=== PATIENT | female | born 1980 | race American Indian/Alaskan Native ===

== ENCOUNTER 2017-06-27 17:46 | Emergency (ER) | payer BC, OTHER ==
--- NOTE | 2017-06-27 18:35 | ED PDOC ---
Arrival/HPI - General Chief Complaint: Palpitations Time Seen by Provider: 06/27/17 17:51 Historian: Patient - History of Present Illness Narrative History of Present Illness (Text): 06/27/17 18:24 37yo morbidly obese female with PMHx of sleep apnea,anxiety, who present with complaint of arrhythmia since yesterday. States she have intermittent feeling of flutter and palpitation since yesterday. She report history of these symptoms for years now. States she saw a Radiologic Technology Instructor for the symptoms and had holter monitor test several times and other test that was all normal. she is on anxiolytic once daily. she denies chest pain, SOD, diaphoresis, calf pain, nausea, vomiting, dizziness, any other complaint. Past Medical History - Provider Review Nursing Documentation Reviewed: Yes - Infectious Disease Hx of Infectious Diseases: None - Cardiac Other/Comment: Unknown cardiac problem. - Gastrointestinal Hx Gastroesophageal Reflux: Yes - Psychiatric Hx Anxiety: Yes Hx Substance Use: No - Surgical History Other/Comment: Lapband adjustment today 06/27/17 Family/Social History - Physician Review Nursing Documentation Reviewed: Yes Family/Social History: Unknown Family HX Smoking Status: Never Smoked Hx Alcohol Use: No Hx Substance Use: No Allergies/Home Meds Allergies/Adverse Reactions: Allergies No Known Allergies Allergy (Verified 06/27/17 17:56) Home Medications: Home Meds Medication Instructions Recorded Confirmed Escitalopram [Lexapro] 10 mg PO DAILY 06/27/17 06/27/17 Omeprazole 40 mg PO DAILY 06/27/17 06/27/17 Review of Systems - Physician Review All systems were reviewed & negative as marked: Yes - Review of Systems Constitutional: Normal Eyes: Normal ENT: Normal Respiratory: Normal Cardiovascular: Palpitations Gastrointestinal: Normal Genitourinary Female: Normal Musculoskeletal: Normal Skin: Normal Neurological: Normal Endocrine: Normal Hemo/Lymphatic: Normal Psychiatric: Normal Physical Exam Vital Signs Reviewed: Yes Vital Signs Temp Pulse Resp BP Pulse Ox 06/27/17 19:34 98.2 F 75 17 134/68 100 06/27/17 17:47 98.7 F 84 18 130/84 96 Temperature: Afebrile Blood Pressure: Normal Pulse: Regular Respiratory Rate: Normal Appearance: Positive for: Well-Appearing, Non-Toxic, Comfortable Pain Distress: None Mental Status: Positive for: Alert and Oriented X 3 - Systems Exam Head: Present: Atraumatic, Normocephalic Pupils: Present: PERRL Extroacular Muscles: Present: EOMI Conjunctiva: Present: Normal Mouth: Present: Moist Mucous Membranes Neck: Present: Normal Range of Motion Respiratory/Chest: Present: Clear to Auscultation, Good Air Exchange. No: Respiratory Distress, Accessory Muscle Use Cardiovascular: Present: Regular Rate and Rhythm, Normal S1, S2. No: Murmurs Abdomen: Present: Normal Bowel Sounds. No: Tenderness, Distention, Peritoneal Signs Back: Present: Normal Inspection Upper Extremity: Present: Normal Inspection. No: Cyanosis, Edema Lower Extremity: Present: Normal Inspection. No: Edema Neurological: Present: GCS=15, CN II-XII Intact, Speech Normal Skin: Present: Warm, Dry, Normal Color. No: Rashes Psychiatric: Present: Alert, Oriented x 3, Normal Insight, Normal Concentration Medical Decision Making ED Course and Treatment: 06/27/17 20:35 Pt in ED for stated history. She denies chest pain and symptom in ED. EKG NSR @84bpm. Lab was reviewed and CE was WNL. Potassium was repleted. Elevated thyroxine was noted. this was DW the pt. she was advised to f/u with her PMD for further evaluation of her thyroid function. she have a general superintendent and was referred to her Radiologic Technology Instructor. - Lab Interpretations Lab Results: 06/27/17 18:30 06/27/17 18:30 Lab Results 06/27/17 19:18: Urine Opiates Screen Negative, Urine Methadone Screen Negative, Ur Barbiturates Screen Negative, Ur Phencyclidine Scrn Negative, Ur Amphetamines Screen Negative, U Benzodiazepines Scrn Negative, U Oth Cocaine Metabols Negative, U Cannabinoids Screen Negative 06/27/17 19:18: Urine Color Yellow, Urine Appearance Clear, Urine pH 6.5, Ur Specific [place] 1.025, Urine Protein Trace H, Urine Glucose (UA) Negative, Urine Ketones Negative, Urine Blood Negative, Urine Nitrate Negative, Urine Bilirubin Negative, Urine Urobilinogen 0.2, Ur Leukocyte Esterase Negative, Urine RBC 0 - 2, Urine WBC 0 - 2, Ur Epithelial Cells 0 - 2, Urine Bacteria Trace 06/27/17 18:30: Thyroxine (T4) 4.4 L, T3 Uptake 35.9, TSH 3rd Generation 0.81 06/27/17 18:30: Sodium 139, Potassium 3.5 L, Chloride 105, Carbon Dioxide 26, Anion Gap 12, BUN 12, Creatinine 0.8, Est GFR ( Amer) > 60, Est GFR (Non- Af Amer) > 60, Random Glucose 119 H, Calcium 9.2, Total Bilirubin 0.3, AST 20, ALT 26, Alkaline Phosphatase 53, Lactate Dehydrogenase 454, Total Creatine Kinase 94, Troponin I < 0.01, Total Protein 6.8, Albumin 3.7, Globulin 3.1, Albumin/Globulin Ratio 1.2 06/27/17 18:30: PT 11.7, INR 1.03, APTT 34.7 06/27/17 18:30: WBC 5.7, RBC 4.35, Hgb 12.1, Hct 36.6, MCV 84.1, MCH 27.8, MCHC 33.1, RDW 13.3, Plt Count 328, MPV 9.6, Gran % 52.8, Lymph % (Auto) 39.9 H, [place] % (Auto) 4.4, Eos % (Auto) 2.5, Baso % (Auto) 0.4, Gran # 3.00, Lymph # ( Auto) 2.3, [place] # (Auto) 0.3, Eos # (Auto) 0.1, Baso # (Auto) 0.02 - Medication Orders Current Medication Orders: Discontinued Medications Potassium Chloride (K-Dur 20 Meq Er Tab) 20 meq PO STAT STA Stop: 06/27/17 19:12 Last Admin: 06/27/17 19:30 Dose: 20 meq Disposition/Present on Arrival - Present on Arrival Any Indicators Present on Arrival: No History of DVT/PE: No History of Uncontrolled Diabetes: No Urinary Catheter: No History of Decub. Ulcer: No History Surgical Site Infection Following: None - Disposition Have Diagnosis and Disposition been Completed?: Yes Diagnosis: Arrhythmia Disposition: HOME/ ROUTINE Disposition Time: 19:30 Patient Plan: Discharge Condition: STABLE Discharge Instructions (ExitCare): Arrhythmias, Arrhythmias (DC) Additional Instructions: Follow up with your Doctor/general superintendent Return to ED for any new symptoms Referrals: Shon Lawson MD [Primary Care Provider] - Follow up with primary Forms: [place] (Armenian)
[2017-06-27 19:01] LABS: BASO # 0.02 K/mm3 (0.0-2.0); BASO % 0.4 % (0.0-3.0); EOS # 0.1 (0.0-0.7); EOS % 2.5 % (1.5-5.0); GRAN % 52.8 % (50.0-68.0); HEMOGLOBIN 12.1 g/dL (12.0-16.0); LYMPH # 2.3 (1.2-3.4); LYMPH % 39.9 % (22.0-35.0); MEAN CELL VOLUME 84.1 fl (80.0-105.0); MEAN CORPUSCULAR HEMOGLOBIN 27.8 pg (25.0-35.0); MEAN CORPUSCULAR HGB CONC 33.1 g/dl (31.0-37.0); MEAN PLATELET VOLUME 9.6 fl (7.0-11.0); MONO # 0.3 (0.1-0.6); MONO % 4.4 % (1.0-6.0); RBC 4.35 10^6/uL (3.5-6.1); RED CELL DISTRIBUTION WIDTH 13.3 % (11.5-14.5); WHITE BLOOD COUNT 5.7 10^3/ul (4.5-11.0)
[2017-06-27 19:02] LABS: INR 1.03 (0.93-1.08); PARTIAL THROMBOPLASTIN TIME 34.7 Seconds (25.1-36.5); PROTHROMBIN TIME 11.7 SECONDS (9.4-12.5)
[2017-06-27 19:07] LABS: ALB/GLOB RATIO 1.2 (1.1-1.8); ALBUMIN 3.7 g/dL (3.0-4.8); ALT/SGPT 26 U/L (7-56); AST/SGOT 20 U/L (14-36); BLOOD UREA NITROGEN 12 mg/dL (7-21); CALCIUM 9.2 mg/dL (8.4-10.5); GFR AFRICAN-AMERICAN > 60; GFR NON-AFRICAN AMERICAN > 60
[2017-06-27] MEDS ORDERED: Potassium Chloride 20 mEq ER Tab PO STA (19:11)
[2017-06-27 19:17] LABS: TROPONIN I < 0.01 ng/mL
[2017-06-27 19:22] LABS: T3 UPTAKE 35.9 % (23.0-41.0); T4 4.4 ug/dL (5.5-11.0)
[2017-06-27 19:36] VITALS: BP 134/68; PULSE 75; RESP 17; TEMP 98.2; O2SAT 100
[2017-06-27 19:37] LABS: PH,URINE 6.5 (4.7-8.0); URINE BILIRUBIN NEGATIVE (NEGATIVE); URINE BLOOD NEGATIVE (NEGATIVE); URINE GLUCOSE (UA) NEGATIVE (NEGATIVE); URINE LEUKOCYTE ESTERASE NEGATIVE Leu/uL (NEGATIVE); URINE PROTEIN TRACE mg/dL (<30 mg/dL); URINE UROBILINOGEN 0.2 E.U./dL (<1 E.U./dL)
[2017-06-27 19:38] LABS: URINE APPEARANCE CLEAR (CLEAR); URINE COLOR YELLOW (YELLOW)
[2017-06-27 19:49] LABS: URINE BACTERIA TRACE (NEG); URINE EPITHELIAL CELLS 0 - 2 /hpf (0-5); URINE RBC 0 - 2 /hpf (0-2); URINE WBC 0 - 2 /hpf (0-6)
[2017-06-27 20:08] LABS: BARBITURATES, UR NEGATIVE (NEGATIVE); BENZODIAZEPINES, UR NEGATIVE (NEGATIVE); OPIATES, UR NEGATIVE (NEGATIVE); PHENCYCLIDINE, UR NEGATIVE (NEGATIVE)
--- NOTE | 2017-06-28 15:50 | CARD ---
APPROVED REPORT EKG Measurement Heart [id number] <Conclusion> Normal sinus rhythm Normal ECG
== END 2017-06-27 19:36 | disposition home or self-care (01) ==
LOC: ED 17:46
DX: I49.9 Cardiac arrhythmia, unspecified (principal); E66.01 Morbid (severe) obesity due to excess calories
CPT/HCPCS: 80053; 81001; 82550; 83615; 84436; 84443; 84479; 84484; 85025; 85610; 85730; 93005; 99284; G0480

== ENCOUNTER 2018-04-08 10:38 | Outpatient (CLI) | payer BC | END 2018-04-08 10:39 | disposition home or self-care (01) | LOC: RAD 10:38 | DX: E22.9 Hyperfunction of pituitary gland, unspecified (principal) ==

== ENCOUNTER 2018-05-28 05:59 | Emergency (ER) | payer BC ==
[2018-05-28 06:16] VITALS: BP 125/85; PULSE 73; TEMP 98.1
[2018-05-28 06:51] VITALS: RESP 17; O2SAT 99
--- NOTE | 2018-05-28 07:04 | ED PDOC ---
Arrival/HPI - General Chief Complaint: Shortness Of Breath Historian: Patient - History of Present Illness Narrative History of Present Illness (Text): 05/28/18 07:05 37F w/ no past medical history presenting to the Emergency Room with symptoms of shortness of breath worsening in the last month. She reports having dyspnea while sleeping. The patient states she has been formally evaluated with sleep studies and tested for obstructive sleep apnea with no evidence of sleep apnea per her sales representative trainee. She reports snoring at night, but reports improvement over time. She denies any choking, disordered breathing patterns, chest pain, abdominal pain, nausea, emesis, or syncopal epsiodes. Time/Duration: > month Symptom Onset: Gradual Symptom Course: Unchanged Activities at Onset: Significant Context: Home Past Medical History - Provider Review Nursing Documentation Reviewed: Yes - Travel History Have you recently traveled outside [place] w/in the past 3 mons?: No - Infectious Disease Hx of Infectious Diseases: None - Reproductive Menopause: No Currently : No - Cardiac Other/Comment: Unknown cardiac problem. - Gastrointestinal Hx Gastroesophageal Reflux: Yes - Psychiatric Hx Anxiety: Yes Hx Substance Use: No - Surgical History Other/Comment: Lapband adjustment today 06/27/17 Family/Social History - Physician Review Nursing Documentation Reviewed: Yes Family/Social History: Unknown Family HX Smoking Status: Never Smoked Hx Alcohol Use: No Hx Substance Use: No Allergies/Home Meds Allergies/Adverse Reactions: Allergies No Known Allergies Allergy (Verified 06/27/17 17:56) Home Medications: Home Meds Medication Instructions Recorded Confirmed Escitalopram [Lexapro] 10 mg PO DAILY 06/27/17 06/27/17 Omeprazole 40 mg PO DAILY 06/27/17 06/27/17 Review of Systems - Physician Review All systems were reviewed & negative as marked: Yes - Review of Systems Respiratory: SOB Physical Exam Vital Signs Reviewed: Yes Vital Signs Temp Pulse Resp BP Pulse Ox 05/28/18 06:10 17 99 05/28/18 06:07 98.1 F 73 16 125/85 98 Temperature: Afebrile Blood Pressure: Normal Pulse: Regular Respiratory Rate: Normal Appearance: Positive for: Well-Appearing, Non-Toxic, Comfortable Mental Status: Positive for: Alert and Oriented X 3 - Systems Exam Head: Present: Atraumatic, Normocephalic Pupils: Present: PERRL Extroacular Muscles: Present: EOMI Conjunctiva: Present: Normal Mouth: Present: Moist Mucous Membranes Neck: Present: Normal Range of Motion Respiratory/Chest: Present: Clear to Auscultation, Good Air Exchange. No: Respiratory Distress Cardiovascular: Present: Regular Rate and Rhythm, Normal S1, S2 Abdomen: Present: Normal Bowel Sounds. No: Tenderness, Distention, Peritoneal Signs Lower Extremity: Present: Normal Inspection Neurological: Present: GCS=15, Speech Normal Skin: Present: Warm, Dry, Rashes, Normal Color Psychiatric: Present: Alert, Oriented x 3, Normal Insight, Normal Concentration Medical Decision Making ED Course and Treatment: 05/28/18 09:56 Impression Differential Diagnoses Include But Is Not Limited To: Plan Progress Notes Disposition/Present on Arrival - Present on Arrival Any Indicators Present on Arrival: No History of DVT/PE: No History of Uncontrolled Diabetes: No Urinary Catheter: No History of Decub. Ulcer: No History Surgical Site Infection Following: None - Disposition Have Diagnosis and Disposition been Completed?: Yes Diagnosis: Dyspnea Disposition: HOME/ ROUTINE Disposition Time: 07:14 Patient Plan: Discharge Patient Problems: Current Active Problems Problem Status Onset Dyspnea Acute Condition: STABLE Discharge Instructions (ExitCare): Shortness of Breath (Dyspnea) (DC) Print Language: ESTONIAN Additional Instructions: Please follow up with your sales representative trainee Try yo schedule an appointment with the neurologist Referrals: Ricci Fournier MD [Staff Provider] - Follow up with primary Forms: [employer] (Fijian), WORK NOTE
--- NOTE | 2018-05-28 09:16 | CARD ---
APPROVED REPORT Date of service: 05/28/2018 EKG Measurement Heart [id number] <Conclusion> Normal sinus rhythm with sinus arrhythmia Normal ECG
== END 2018-05-28 08:00 | disposition home or self-care (01) ==
LOC: ED 05:59
DX: R06.00 Dyspnea, unspecified (principal)